=== PATIENT | female | born 2000 | race American Indian/Alaskan Native ===

== ENCOUNTER 2018-10-17 04:35 | Emergency (ER) | payer OTHER ==
[2018-10-17] MEDS ORDERED: SOLU-Medrol IV ONE (04:49)
[2018-10-17] MEDS ORDERED: PEPCID IV ONE (04:49)
[2018-10-17] MEDS ORDERED: BENADRYL IV ONE (04:49)
[2018-10-17 06:37] VITALS: BP 114/73
--- NOTE | 2018-10-17 07:20 | Emergency Department Report ---
ED General Adult HPI - General Chief complaint: Allergic Reaction Stated complaint: ALLERGIC REACTION FACE/TONGUE SWOLLEN Time Seen by Provider: 10/17/18 06:55 Source: patient Mode of arrival: Ambulatory Limitations: No Limitations - History of Present Illness Initial comments: This is a 17-year-old female who states she's had several prior episodes of f acial lip swelling. She does not take an INES inhibitor. She does not take any medicines. She has not seen an tungsten tender. This time she had swelling of her lips and tongue. She had no difficulty in breathing or rash. + My encounter she states problem has resolved. There was no obvious precipitant. -: Gradual, hour(s) Location: face, mouth Severity scale (0 -10): 0 Consistency: now resolved Worsens with: none Associated Symptoms: denies other symptoms - Related Data Allergies Allergy/AdvReac Type Severity Reaction Status Date / Time apricot Allergy Hives Verified 10/17/18 04:43 lobster Allergy Hives Uncoded 10/17/18 04:43 ED Review of Systems ROS: Stated complaint: ALLERGIC REACTION FACE/TONGUE SWOLLEN Other details as noted in HPI Constitutional: denies: chills, fever Eyes: denies: eye pain, eye discharge, vision change ENT: as per HPI. denies: ear pain, throat pain Respiratory: denies: cough, shortness of breath, wheezing Cardiovascular: denies: chest pain, palpitations Endocrine: no symptoms reported Gastrointestinal: denies: abdominal pain, nausea, diarrhea Genitourinary: denies: urgency, dysuria, discharge Musculoskeletal: denies: back pain, joint swelling, arthralgia Skin: denies: rash, lesions Neurological: denies: headache, weakness, paresthesias Psychiatric: denies: anxiety, depression Hematological/Lymphatic: denies: easy bleeding, easy bruising ED Past Medical Hx - Past Medical History Previous Medical History?: No - Surgical History Past Surgical History?: No - Social History Smoking Status: Never Smoker ED Physical Exam - General Limitations: No Limitations General appearance: alert, in no apparent distress - Head Head exam: Present: atraumatic, normocephalic - Eye Eye exam: Present: normal appearance, PERRL, EOMI. Absent: scleral icterus - ENT ENT exam: Present: normal orophraynx, mucous membranes moist, other (no lip or tongue edema) - Neck Neck exam: Present: normal inspection. Absent: tenderness, meningismus - Respiratory Respiratory exam: Present: normal lung sounds bilaterally. Absent: respiratory distress - Cardiovascular Cardiovascular Exam: Present: regular rate, normal rhythm. Absent: systolic murmur, diastolic murmur, rubs, gallop - GI/Abdominal GI/Abdominal exam: Present: soft, normal bowel sounds. Absent: distended, tenderness, guarding - Extremities Exam Extremities exam: Present: normal inspection - Back Exam Back exam: Present: normal inspection - Neurological Exam Neurological exam: Present: alert, oriented X3, CN II-XII intact. Absent: motor sensory deficit - Psychiatric Psychiatric exam: Present: normal affect, normal mood - Skin Skin exam: Present: warm, dry, intact, normal color. Absent: rash ED Course Vital Signs 10/17/18 10/17/18 10/17/18 04:39 05:30 06:00 Temperature 98.2 F Pulse Rate 72 83 72 Respiratory 18 18 17 Rate Blood Pressure 131/87 130/89 114/73 O2 Sat by Pulse 100 100 100 Oximetry 10/17/18 10/17/18 06:16 06:30 Temperature Pulse Rate 74 72 Respiratory 22 18 Rate Blood Pressure 114/73 114/73 O2 Sat by Pulse 100 100 Oximetry Critical care attestation.: If time is entered above; I have spent that time in minutes in the direct care of this critically ill patient, excluding procedure time. ED Disposition Clinical Impression: Angioedema Qualifiers: Encounter type: initial encounter Qualified Code(s): T78.3XXA - Angioneurotic edema, initial encounter Disposition: - TO HOME OR SELFCARE Is pt being admited?: No Does the pt Need Aspirin: No Condition: Stable Instructions: Angioedema (ED) Additional Instructions: Further testing with an tungsten tender is recommended. Take 25 mg of Benadryl every 8 hours 3 doses. Return any recurrent symptoms. Referrals: [facility] [Provider Group] - 3-5 Days Time of Disposition: 07:19
== END 2018-10-17 07:15 | disposition home or self-care (01) ==
LOC: ED 04:35
DX: T78.3XXA Angioneurotic edema, initial encounter (principal); Z91.018 Allergy to other foods; Z91.013 Allergy to seafood; X58.XXXA Exposure to other specified factors, initial encounter
CPT/HCPCS: 96374; 96375; 99282; J1200; J2930